=== PATIENT | male | born 1975 | race Caucasian/White ===

== ENCOUNTER 2017-01-03 02:24 | Emergency (ER) | payer OTHER ==
[2017-01-03 02:37] VITALS: BMI 35.7
--- NOTE | 2017-01-03 02:49 | PDOC ---
History of Present Illness - General History Source: Patient Exam Limitations: No Limitations - History of Present Illness Initial Comments: 01/03/17 03:31 The patient is a 41 year old male with a significant past medical history of ventral hernia (scheduled for surgery) who presents to the ED with complaints of vomiting since last night. The patient reports a sudden onset of body heat that woke him up from his sleep last night. Patient states he developed shortness of breath and chest pressure and got up and drank water. Patient reports 3 episodes of vomiting a water-like substance around 2:20 am. Patient states he ate taco solomon at 9:30pm last night. Denies similar symptoms in the past. Denies abdominal pain or diarrhea. Denies dysuria or changes in urinary output. Denies fevers or chills. Denies any other symptoms. 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 Surgical hx: Appendectomy <José Miguel Yoder - Last Filed: 01/03/17 03:31> <Kandis Smith - Last Filed: 01/03/17 23:20> - General Chief Complaint: Shortness of Breath Stated Complaint: DIFFICULTY BREATHING Time Seen by Provider: 01/03/17 02:48 Past History <José Miguel Yoder - Last Filed: 01/03/17 03:31> - Surgical History Appendectomy: Yes - Psycho/Social/Smoking Cessation Hx Suicidal Ideation: No Smoking History: Never smoked Have you smoked in the past 12 months: No Number of Cigarettes Smoked Daily: 0 Information on smoking cessation initiated: No Hx Alcohol Use: No Drug/Substance Use Hx: No <Kandis Smith - Last Filed: 01/03/17 23:20> - Past Medical History Allergies/Adverse Reactions: Allergies Allergy/AdvReac Type Severity Reaction Status Date / Time No Known Allergies Allergy Verified 01/03/17 02:30 Home Medications: Ambulatory Orders NK [No Known Home Medication] 01/03/17 Review of Systems - Review of Systems Able to Perform ROS?: Yes Comments:: 01/03/17 03:31 CONSTITUTIONAL: + body heat Absent: fever, chills, diaphoresis, generalized weakness, malaise, loss of appetite HEENT: Absent: rhinorrhea, nasal congestion, throat pain, throat swelling, difficulty swallowing, mouth swelling, ear pain, eye pain, visual Changes CARDIOVASCULAR: + chest pain Absent: syncope, palpitations, irregular heart rate, lightheadedness, peripheral edema RESPIRATORY: + shortness of breath Absent: cough, dyspnea with exertion, orthopnea, wheezing, stridor, hemoptysis GASTROINTESTINAL:+ nausea, vomiting Absent: abdominal pain, abdominal distension, diarrhea, constipation, melena, hematochezia GENITOURINARY: Absent: dysuria, frequency, urgency, hesitancy, hematuria, flank pain, genital pain MUSCULOSKELETAL: Absent: myalgia, arthralgia, joint swelling SKIN: Absent: rash, itching, pallor HEMATOLOGIC/IMMUNOLOGIC: Absent: easy bleeding, easy bruising, lymphadenopathy, frequent infections ENDOCRINE: Absent: unexplained weight gain, unexplained weight loss, heat intolerance, cold intolerance NEUROLOGIC: Absent: headache, focal weakness or paresthesias, dizziness, unsteady gait, seizure, mental status changes, bladder or bowel incontinence PSYCHIATRIC: Absent: anxiety, depression, suicidal or homicidal ideation, hallucinations. All Other Systems: Reviewed and Negative <José Miguel Yoder - Last Filed: 01/03/17 03:31> *Physical Exam - Vital Signs Last Vital Signs Temp Pulse Resp BP Pulse Ox 97.8 F 66 20 140/89 96 01/03/17 02:30 01/03/17 02:30 01/03/17 02:30 01/03/17 02:30 01/03/17 02:30 - Physical Exam Comments: 01/03/17 03:31 GENERAL: Well developed, well nourished. Awake and alert. No acute distress. HEENT: Normocephalic, atraumatic. PERRLA, EOMI. No conjunctival pallor. Sclera are non- icteric. Moist mucous membranes. Oropharynx is clear. NECK: Supple. Full ROM. No JVD. Carotid pulses 2+ and symmetric, without bruits. No thyromegaly. NCo lymphadenopathy. CARDIOVASCULAR: Regular rate and rhythm. No murmurs, rubs, or gallops. Distal pulses are 2+ and symmetric. PULMONARY: No evidence of respiratory distress. Lungs clear to auscultation bilaterally. No wheezing, rales or rhonchi. ABDOMINAL:+ gassy bowel sounds, ventral hernia Soft. Non-tender. Non-distended. No rebound or guarding. No organomegaly. MUSCULOSKELETAL Normal range of motion at all joints. No bony deformities or tenderness. No CVA tenderness. EXTREMITIES: No cyanosis. No clubbing. No edema. No calf tenderness. SKIN: Warm and dry. Normal capillary refill. No rashes. No jaundice. NEUROLOGICAL: Alert, awake, appropriate. Cranial nerves 2-12 intact. No deficits to light touch and temperature in face, upper extremities and lower extremities. No motor deficits in the in face, upper extremities and lower extremities. Normoreflexic in the upper and lower extremities. Normal speech. Toes are down- going bilaterally. Gait is normal without ataxia. PSYCHIATRIC: Cooperative. Good eye contact. Appropriate mood and affect. <José Miguel Yoder - Last Filed: 01/03/17 03:31> - Vital Signs Last Vital Signs Temp Pulse Resp BP Pulse Ox 97.8 F 66 20 140/89 96 01/03/17 02:30 01/03/17 02:30 01/03/17 02:30 01/03/17 02:30 01/03/17 02:30 <Kandis Smith - Last Filed: 01/03/17 23:20> ED Treatment Course - LABORATORY CBC & Chemistry Diagram: 01/03/17 03:47 <Kandis Smith - Last Filed: 01/03/17 23:20> Medical Decision Making - Medical Decision Making 01/03/17 23:19 Pt comes with vomiting that woke him in the middle of the night. Around 9PM he ate a load of taco solomon. /girlfriend states that she barely ate any and so she is not ill. Pt has no fever and no chills, No CP. He is anxious. Abd is gassy. Labs normal. He was hydrated and patient will be discharged as he is feeling better with hydration and meds. Dx: Food poisoning. <Kandis Smith - Last Filed: 01/03/17 23:20> *DC/Admit/Observation/Transfer - Attestations Scribe Attestion: 01/03/17 03:31 Documentation prepared by José Miguel Yoder, acting as medical surgical tech for Kandis Smith MD <José Miguel Yoder - Last Filed: 01/03/17 03:31> - Discharge Dispostion Admit: No <Kandis Smith - Last Filed: 01/03/17 23:20> Diagnosis at time of Disposition: Food poisoning - Discharge Dispostion Disposition: HOME Condition at time of disposition: Stable - Patient Instructions Printed Discharge Instructions: DI for Food Poisoning
[2017-01-03] MEDS ORDERED: PANTOPRAZOLE SODIUM 40 MG in SODIUM CHLORIDE 100 ML IVPB ONE (03:31)
[2017-01-03] MEDS ORDERED: ONDANSETRON 4 MG/2 ML VIAL IVPB ONE (03:31)
[2017-01-03] MEDS ORDERED: ONDANSETRON 4 MG/2 ML VIAL ONE (03:40)
[2017-01-03] MEDS ORDERED: PANTOPRAZOLE SODIUM 100 ML IVPB ONE (03:40)
[2017-01-03 04:02] LABS: MCHC 32.9 g/dl (32.0-35.9); MEAN PLT VOLUME 7.3 fl (7.5-11.1); RDW 13.4 % (11.9-15.9)
[2017-01-03 04:05] LABS: BASOPHIL 0.4 % (0-2.0); EOSINOPHIL 2.3 % (0-4.5); MCH 28.8 pg (25.7-33.7); MEAN CELL VOLUME 87.6 fl (80-96); NEUTROPHILS 48.7 % (42.8-82.8); PLATELET COUNT 261 K/MM3 (134-434); WHITE BLOOD COUNT 6.8 K/mm3 (4.0-10.0)
[2017-01-03 04:23] LABS: INR 0.9 (0.82-1.09); PROTHROMBIN TIME (PATIENT) 9.9 SEC (9.98-11.88)
[2017-01-03 04:35] LABS: TROPONIN I < 0.02 ng/ml (0.00-0.05)
[2017-01-03] MEDS ORDERED: MAG HYDROX/AL HYDROX/SIMETH 30 ML UNIT-DOSE CUP PO ONE (05:12)
[2017-01-03] MEDS ORDERED: MAG HYDROX/AL HYDROX/SIMETH 30 ML UNIT-DOSE CUP ONE (05:14)
[2017-01-03 05:21] VITALS: BP 111/68; PULSE 76; TEMP 97.6
--- NOTE | 2017-01-03 15:26 | EKG ---
Test Reason : Blood Pressure : / mmHG Vent. Rate : 058 BPM Atrial Rate : 058 BPM P-R Int : 154 ms QRS Dur : 088 ms QT Int : 388 ms P-R-T Axes : 057 043 020 degrees QTc Int : 380 ms SINUS BRADYCARDIA WITH SINUS ARRHYTHMIA OTHERWISE NORMAL ECG WHEN COMPARED WITH ECG OF 06-APR-2006 17:18, NO SIGNIFICANT CHANGE WAS FOUND Confirmed by DENILSON ROPER MD ([id number]) on 01/03/2017 3:26:32 PM Referred By: Confirmed By:DENILSON ROPER MD
== END 2017-01-03 05:22 | disposition home or self-care (01) ==
LOC: JER 02:24
PROC: 3E033GC Introduction of Other Therapeutic Substance into Peripheral Vein, Percutaneous Approach (ICD-10-PCS; principal; 2017-01-03)
DX: T62.91XA Toxic effect of unspecified noxious substance eaten as food, accidental (unintentional), initial encounter (principal); Y92.9 Unspecified place or not applicable; K43.9 Ventral hernia without obstruction or gangrene
CPT/HCPCS: 36415; 71020-TC; 82550; 84484; 85025; 85610; 93005; 93010; 99282-25

== ENCOUNTER 2020-08-12 15:35 | Emergency (ER) | payer OTHER ==
[2020-08-12 15:45] VITALS: BP 139/86; PULSE 72; TEMP 97.8; BMI 38.2
[2020-08-12] MEDS ORDERED: KETOROLAC TROMETHAMINE 30 MG/1 ML VIAL IM ONE (16:24)
[2020-08-12] MEDS ORDERED: KETOROLAC TROMETHAMINE 30 MG/1 ML VIAL ONE (16:25)
== END 2020-08-12 17:20 | disposition home or self-care (01) ==
LOC: JERFT 15:35
PROC: 3E0233Z Introduction of Anti-inflammatory into Muscle, Percutaneous Approach (ICD-10-PCS; principal; 2020-08-12)
DX: S86.111A Strain of other muscle(s) and tendon(s) of posterior muscle group at lower leg level, right leg, initial encounter (principal)
CPT/HCPCS: 93971-TC; 99284-25

== ENCOUNTER 2021-04-28 14:46 | Emergency (ER) | payer OTHER ==
[2021-04-28 14:51] VITALS: BP 129/71; PULSE 59; TEMP 98; BMI 36.1
[2021-04-28] MEDS ORDERED: KETOROLAC TROMETHAMINE 30 MG/1 ML VIAL IM ONE (15:35)
[2021-04-28] MEDS ORDERED: LIDOCAINE 5% TOPICAL PATCH TP ONE (15:35)
[2021-04-28] MEDS ORDERED: METHOCARBAMOL 500 MG TABLET PO ONE (15:35)
[2021-04-28] MEDS ORDERED: METHOCARBAMOL 500 MG TABLET ONE (16:15)
[2021-04-28] MEDS ORDERED: KETOROLAC TROMETHAMINE 30 MG/1 ML VIAL ONE (16:15)
[2021-04-28] MEDS ORDERED: LIDOCAINE 5% TOPICAL PATCH ONE (16:15)
== END 2021-04-28 16:54 | disposition home or self-care (01) ==
LOC: JER 14:46 → JERFT 14:46
PROC: 3E023GC Introduction of Other Therapeutic Substance into Muscle, Percutaneous Approach (ICD-10-PCS; principal; 2021-04-28)
DX: S39.012A Strain of muscle, fascia and tendon of lower back, initial encounter (principal); Y99.9 Unspecified external cause status
CPT/HCPCS: 99284-25

== ENCOUNTER 2021-10-17 13:28 | Emergency (ER) | payer OTHER ==
[2021-10-17 13:42] VITALS: BP 124/66; PULSE 115; TEMP 97.7; BMI 32.5
== END 2021-10-17 14:54 | disposition home or self-care (01) ==
LOC: JERFT 13:28
DX: L50.1 Idiopathic urticaria (principal)
CPT/HCPCS: 99281-25

== ENCOUNTER 2023-06-10 14:30 | Emergency (ER) | payer OTHER ==
[2023-06-10 14:53] VITALS: BP 137/83; PULSE 93; RESP 17; TEMP 98.2; BMI 36.8
[2023-06-10] MEDS ORDERED: ACETAMINOPHEN 1000 MG/100 ML BAG IVPB ONE (15:15)
[2023-06-10] MEDS ORDERED: SODIUM CHLORIDE 0.9% 500 ML INFUS.BAG IV ONE (15:15)
[2023-06-10] MEDS ORDERED: ACETAMINOPHEN INJECTION 100 ML IVPB ONE (15:25)
[2023-06-10 15:47] LABS: BASO % 0.6 % (0-2.0); HEMATOCRIT 47.4 % (35.4-49); HEMOGLOBIN 16.1 GM/dL (11.7-16.9); LYMPH % 32.3 % (8-40); MCH 29.3 pg (25.7-33.7); MCHC 33.9 g/dl (32.0-35.9); MEAN CELL VOLUME 86.4 fl (80-96); MONO % 8.7 % (3.8-10.2); NEUT % 56.4 % (42.8-82.8); PLATELET COUNT 336 10^3/uL (134-434); RBC 5.48 M/mm3 (4.00-5.60); RDW 13.7 % (11.9-15.9); WHITE BLOOD COUNT 8.3 K/mm3 (4.0-10.0)
[2023-06-10 15:49] LABS: EPI CELLS 1 /uL (0-25.1); HYALINE CASTS 0 /uL (0-3.1); PH,URINE 5.5 (5.0-8.0); URINE APPEARANCE CLEAR; URINE BACTERIA 8 /uL (0-1359); URINE BILIRUBIN NEGATIVE (NEGATIVE); URINE COLOR YELLOW; URINE GLUCOSE (UA) NEGATIVE (NEGATIVE); URINE KETONE TRACE (NEGATIVE); URINE LEUK ESTERASE NEGATIVE (NEGATIVE); URINE NITRITE NEGATIVE (NEGATIVE); URINE PROTEIN NEGATIVE (NEGATIVE); URINE RBC 49 /uL (0-23.9); URINE UROBILINOGEN 0.2 mg/dL (0.2-1.0); URINE WBC 9 /uL (0-25.8)
[2023-06-10 16:04] LABS: POTASSIUM 3.7 mmol/L (3.5-5.1)
[2023-06-10 16:05] LABS: CALCIUM 9.4 mg/dL (8.5-10.1)
[2023-06-10 16:06] LABS: BLOOD UREA NITROGEN 15.6 mg/dL (7-18)
[2023-06-10] MEDS ORDERED: TAMSULOSIN HCL 0.4 MG CAP PO ONE (16:33)
[2023-06-10] MEDS ORDERED: TAMSULOSIN HCL 0.4 MG CAP ONE (16:40)
[2023-06-10 17:34] LABS: INR 0.95 (0.83-1.09)
== END 2023-06-10 17:54 | disposition home or self-care (01) ==
LOC: JERFT 14:30
PROC: 3E033NZ Introduction of Analgesics, Hypnotics, Sedatives into Peripheral Vein, Percutaneous Approach (ICD-10-PCS; principal; 2023-06-10)
DX: M54.9 Dorsalgia, unspecified (principal); R10.9 Unspecified abdominal pain; R31.9 Hematuria, unspecified; N20.0 Calculus of kidney
CPT/HCPCS: 36415; 71046-TC-FY; 74176-TC; 80048; 81003; 85025; 85610; 86850; 86900; 86901; 87086; 93005; 93010; 99285-25

== ENCOUNTER 2024-03-02 23:10 | Emergency (ER) | payer OTHER ==
[2024-03-02 23:17] VITALS: BP 171/99; PULSE 74; RESP 18; TEMP 97.7; BMI 35.2
[2024-03-02] MEDS ORDERED: morphine SULFATE 4 MG/ML VIAL ONE (23:56)
[2024-03-02 23:57] LABS: EPI CELLS 3 /uL (0-25.1); HYALINE CASTS 0 /uL (0-3.1); PH,URINE 5.5 (5.0-8.0); URINE APPEARANCE CLOUDY; URINE BACTERIA 4 /uL (0-1359); URINE BILIRUBIN NEGATIVE (NEGATIVE); URINE COLOR ORANGE; URINE GLUCOSE (UA) NEGATIVE (NEGATIVE); URINE KETONE TRACE (NEGATIVE); URINE LEUK ESTERASE TRACE (NEGATIVE); URINE NITRITE NEGATIVE (NEGATIVE); URINE PROTEIN 2+ (NEGATIVE); URINE RBC 8741 /uL (0-23.9); URINE WBC 36 /uL (0-25.8)
[2024-03-02] MEDS ORDERED: KETOROLAC TROMETHAMINE 15 MG/ML VIAL ONE (23:57)
[2024-03-02] MEDS ORDERED: ACETAMINOPHEN INJECTION 100 ML IVPB ONE (23:57)
[2024-03-02] MEDS ORDERED: ONDANSETRON 4 MG/2 ML VIAL ONE (23:57)
[2024-03-03] MEDS: ONDANSETRON 4 MG/2 ML VIAL IVPUSH ONE (00:06)
[2024-03-03] MEDS: SODIUM CHLORIDE 1,000 ML IV STA (00:06)
[2024-03-03] MEDS: KETOROLAC TROMETHAMINE 30 MG/1 ML VIAL IVPUSH ONE (00:06)
[2024-03-03] MEDS: morphine CARPU-JECT 4 MG/1 ML DISP.SYRIN IVPUSH ONE (00:06)
[2024-03-03] MEDS: ACETAMINOPHEN 1000 MG/100 ML BAG IVPB ONE (00:09)
[2024-03-03 00:16] LABS: BASO % 0.7 % (0-2.0); HEMATOCRIT 43.1 % (35.4-49); HEMOGLOBIN 14.6 GM/dL (11.7-16.9); LYMPH % 31.9 % (8-40); MCH 29.6 pg (25.7-33.7); MEAN CELL VOLUME 87.2 fl (80-96); MEAN PLT VOLUME 6.9 fl (7.5-11.1); MONO % 8.2 % (3.8-10.2); NEUT % 57.2 % (42.8-82.8); PLATELET COUNT 272 10^3/uL (134-434); RBC 4.95 M/mm3 (4.00-5.60); RDW 13.5 % (11.9-15.9); WHITE BLOOD COUNT 7.6 K/mm3 (4.0-10.0)
[2024-03-03 00:28] LABS: POTASSIUM 4.7 mmol/L (3.5-5.1)
[2024-03-03 00:30] LABS: CALCIUM 9.8 mg/dL (8.5-10.1)
[2024-03-03 00:31] LABS: ALBUMIN 4.2 g/dl (3.4-5.0); BLOOD UREA NITROGEN 18.4 mg/dL (7-18)
[2024-03-03 00:34] LABS: CREATININE 1.1 mg/dL (0.55-1.3)
[2024-03-03 00:36] LABS: BILIRUBIN,TOTAL 0.4 mg/dL (0.2-1); TOT PROT 7.2 g/dl (6.4-8.2)
== END 2024-03-03 02:55 | disposition home or self-care (01) ==
LOC: JER 23:10
PROC: 3E033NZ Introduction of Analgesics, Hypnotics, Sedatives into Peripheral Vein, Percutaneous Approach (ICD-10-PCS; principal; 2024-03-03)
PROC: 3E0333Z Introduction of Anti-inflammatory into Peripheral Vein, Percutaneous Approach (ICD-10-PCS; 2024-03-03)
PROC: 3E033NZ Introduction of Analgesics, Hypnotics, Sedatives into Peripheral Vein, Percutaneous Approach (ICD-10-PCS; 2024-03-03)
PROC: 3E033GC Introduction of Other Therapeutic Substance into Peripheral Vein, Percutaneous Approach (ICD-10-PCS; 2024-03-03)
PROC: 3E0337Z Introduction of Electrolytic and Water Balance Substance into Peripheral Vein, Percutaneous Approach (ICD-10-PCS; 2024-03-03)
DX: N13.2 Hydronephrosis with renal and ureteral calculous obstruction (principal); R11.2 Nausea with vomiting, unspecified; N50.811 Right testicular pain; R10.31 Right lower quadrant pain
CPT/HCPCS: 36415; 74176-TC; 80053; 81003; 85025; 87086; 99284-25; J0131